=== PATIENT | female | born 1955 | race Caucasian/White ===

== ENCOUNTER 2019-01-19 17:23 | Emergency (ER) | payer OTHER ==
--- NOTE | 2019-01-19 18:43 | EDPHYS ---
Physician Documentation [facility] Name: Crystal Perry Age: 63 yrs Sex: Female : 1955 Arrival Date: 01/19/2019 Time: 17:26 Bed 7 Private MD: ED Physician Nicholas Cano HPI: 01/19 17:27 This 63 yrs old Female presents to ER via Unassigned with complaints of Fall ma2 Injury. 17:27 Details of fall: The patient fell from a height, down approximately 2 stairs. Onset: ma2 The symptoms/episode began/occurred suddenly, 1 hour(s) ago. Associated injuries: The patient sustained right foot leg. Severity of symptoms: At their worst the symptoms were moderate, in the emergency department the symptoms are unchanged. The patient has not experienced similar symptoms in the past. declined painrx in er . Historical: - Allergies: 17:30 No Known Allergies; bp - Home Meds: 17:30 Unable to obtain [Active]; bp - PMHx: 17:30 Unable to obtain; bp - Immunization history:: Adult Immunizations. - Social history:: Smoking status: Patient/guardian denies using tobacco. - Family history:: not pertinent. - Ebola Screening: : No symptoms or risks identified at this time. - Hospitalizations: : No recent hospitalization is reported. ROS: 17:27 Constitutional: Negative for fever, chills, and weight loss, Cardiovascular: Negative ma2 for chest pain, palpitations, and edema, Respiratory: Negative for shortness of breath, cough, wheezing, and pleuritic chest pain, Abdomen/GI: Negative for abdominal pain, nausea, diarrhea, and constipation, Neuro: Negative for headache, weakness, numbness, tingling, and seizure, Psych: Negative for depression, anxiety, suicide ideation, homicidal ideation, and hallucinations. 17:27 All other systems are negative. Exam: 17:27 Constitutional: This is a well developed, well nourished patient who is awake, alert, ma2 and in no acute distress. Chest/axilla: Normal chest wall appearance and motion. Nontender with no deformity. No lesions are appreciated. Cardiovascular: Regular rate and rhythm with a normal S1 and S2. No gallops, murmurs, or rubs. Normal PMI, no JVD. No pulse deficits. Respiratory: Lungs have equal breath sounds bilaterally, clear to auscultation and percussion. No rales, rhonchi or wheezes noted. No increased work of breathing, no retractions or nasal flaring. Abdomen/GI: Soft, non-tender, with normal bowel sounds. No distension or tympany. No guarding or rebound. No evidence of tenderness throughout. Skin: Warm, dry with normal turgor. Normal color with no rashes, no lesions, and no evidence of cellulitis. Neuro: Awake and alert, GCS 15, oriented to person, place, time, and situation. Cranial nerves II-XII grossly intact. Motor strength 5/5 in all extremities. Sensory grossly intact. Cerebellar exam normal. Normal gait. 17:27 MS/ Extremity: ttp ob right ankel and lower leg, otherwise Pulses equal, no cyanosis. Neurovascular intact. Full, normal range of motion. Vital Signs: 17:30 BP 125 / 60; Pulse 64; Resp 16; Temp 97.5; Pulse Ox 100% ; Weight 83.91 kg; Height 5 bp ft. 4 in. (162.56 cm); 18:00 BP 122 / 62; Pulse 73; Resp 16; Pulse Ox 97% ; bp 17:30 Body Mass Index 31.75 (83.91 kg, 162.56 cm) bp Procedures: 18:37 Splinting: Splint applied to right leg using Orthoglass splint, post reduction film - ct2 reveals normal alignment, Examined by me, post splint application: neurovascular intact, 2+ distal pulses palpable, brisk capillary refill noted, Patient tolerated well. MDM: 17:26 Patient medically screened. [facility] 17:27 Differential diagnosis: contusion, fracture, sprain, strain. [facility] 18:37 Data reviewed: vital signs, nurses notes. Counseling: I had a detailed discussion with [facility] the patient and/or guardian regarding: the historical points, exam findings, and any diagnostic results supporting the discharge/admit diagnosis, the presence of at least one elevated blood pressure reading (>120/80) during this emergency department visit, the need for outpatient follow up. Response to treatment: the patient's symptoms have markedly improved after treatment. 01/19 17:27 Order name: Ankle Right 3 View XRAY [facility] 01/19 17:27 Order name: Foot Right 3 View XRAY [facility] 01/19 17:27 Order name: Tib Fib Right XRAY ma2 01/19 18:44 Order name: Splint - Posterior Leg: stirrup and posterior please; Complete Time: 19:58 ma2 01/19 18:44 Order name: Crutches; Complete Time: 19:58 ma2 Administered Medications: 18:37 Drug: [place] 10 mg-325 mg 1 tabs Route: PO; bp 18:43 Follow up: Response: No adverse reaction bp 18:55 Drug: Ketorolac 60 mg Route: IM; Site: right gluteus; bp 19:20 Follow up: Response: No adverse reaction; Patient states "it still hurts but I'm just lp1 ready to go home" Disposition: 01/19/19 18:42 Discharged to Home. Impression: Nondisplaced transverse fracture of shaft of right tibia. - Condition is Stable. - Discharge Instructions: Tibial Fracture, Adult. - Prescriptions for Tylenol- Codeine #3 300-30 mg Oral Tablet - take 2 tablet by ORAL route every 6 hours As needed; 30 tablet. - Medication Reconciliation Form, Thank You Letter, Antibiotic Education, Prescription Opioid Use form. - Follow up: Private Physician; When: Tomorrow; Reason: Continuance of care. Follow up: Jaspreet Up MD; When: Tomorrow; Reason: If symptoms return, Continuance of care. - Notes: please do not put weight on your right leg! Signatures: Dispatcher [employer] EDMS Jen Hastings RN RN lp1 Kev Donald RN RN bp Nicholas Cano MD MD ma2 Corrections: (The following items were deleted from the chart) 20:00 18:42 01/19/2019 18:42 Discharged to Home. Impression: Nondisplaced transverse fracture lp1 of shaft of right tibia. Condition is Stable. Forms are Medication Reconciliation Form, Thank You Letter, Antibiotic Education, Prescription Opioid Use. Follow up: Private Physician; When: Tomorrow; Reason: Continuance of care. Follow up: Dr. Jaspreet Up; When: Tomorrow; Reason: If symptoms return, Continuance of care. ma2
--- NOTE | 2019-01-19 18:43 | ER ---
Nurse's Notes [facility] Name: Crystal Perry Age: 63 yrs Sex: Female : 1955 Arrival Date: 01/19/2019 Time: 17:26 Bed 7 Private MD: Diagnosis: Nondisplaced transverse fracture of shaft of right tibia Presentation: 01/19 17:27 Presenting complaint: Patient states: FALL FROM ATTIC, FLAT FOOTED LANDING. Transition bp of care: patient was not received from another setting of care. Onset of symptoms was January 19, 2019 at 17:00. Risk Assessment: Do you want to hurt yourself or someone else? Patient reports no desire to harm self or others. Initial Sepsis Screen: Does the patient meet any 2 criteria? No. Patient's initial sepsis screen is negative. Does the patient have a suspected source of infection? No. Patient's initial sepsis screen is negative. Care prior to arrival: Placed on backboard. 17:27 Method Of Arrival: EMS: [facility] bp 17:27 Acuity: JACQUE 3 bp Triage Assessment: 17:30 General: Appears in no apparent distress. comfortable, Behavior is cooperative, bp appropriate for age, anxious. Pain: Complains of pain in right ankle. EENT: No deficits noted. Neuro: No deficits noted. Cardiovascular: No deficits noted. Respiratory: No deficits noted. GI: No signs and/or symptoms were reported involving the gastrointestinal system. : No signs and/or symptoms were reported regarding the genitourinary system. Derm: No deficits noted. Musculoskeletal: No deficits noted. Historical: - Allergies: 17:30 No Known Allergies; bp - Home Meds: 17:30 Unable to obtain [Active]; bp - PMHx: 17:30 Unable to obtain; bp - Immunization history:: Adult Immunizations. - Social history:: Smoking status: Patient/guardian denies using tobacco. - Family history:: not pertinent. - Ebola Screening: : No symptoms or risks identified at this time. - Hospitalizations: : No recent hospitalization is reported. Screenin:32 Abuse screen: Denies threats or abuse. Denies injuries from another. Nutritional bp screening: No deficits noted. Tuberculosis screening: No symptoms or risk factors identified. Fall Risk None identified. Assessment: 17:32 General: SEE TRIAGE NOTE. bp 18:00 Reassessment: XRAY COMPLETED, RESULTS PENDING. bp 19:15 Reassessment: Patient states continued pain to right leg; States "I'm just ready for my lp1 splint and to go home". General: Appears uncomfortable, Behavior is appropriate for age. 19:22 Reassessment: pt c/o numbness and pain in ankle and toes, CR is the same naomi, ch temperature is the same, skin is pale equally bilaterally. pt does have some swelling. after splinting, pt NV status remains the same, foot elevated on pillows, awaiting splint to harden and crutches for discharge. Vital Signs: 17:30 BP 125 / 60; Pulse 64; Resp 16; Temp 97.5; Pulse Ox 100% ; Weight 83.91 kg; Height 5 bp ft. 4 in. (162.56 cm); 18:00 BP 122 / 62; Pulse 73; Resp 16; Pulse Ox 97% ; bp 17:30 Body Mass Index 31.75 (83.91 kg, 162.56 cm) bp ED Course: 17:26 Patient arrived in ED. bp 17:26 Nicholas Cano MD is Attending Physician. ma2 17:29 Triage completed. bp 17:30 Arm band placed on. bp 17:32 Patient has correct armband on for positive identification. Bed in low position. Call bp light in reach. Side rails up X2. 18:09 Kev Donald, RN is Primary Nurse. bp 18:25 Ankle Right 3 View XRAY In Process Unspecified. EDMS 18:25 Foot Right 3 View XRAY In Process Unspecified. EDMS 18:26 Tib Fib Right XRAY In Process Unspecified. EDMS 18:38 Jaspreet Up MD is Referral Physician. ma2 19:22 Orthoglass splint: Posterior short lleg splint applied on right leg. stirrup splint ch applied on right leg. 19:22 No provider procedures requiring assistance completed. ch 19:35 Patient did not have IV access during this emergency room visit. Crutch training done. lp1 Administered Medications: 18:37 Drug: [place] 10 mg-325 mg 1 tabs Route: PO; bp 18:43 Follow up: Response: No adverse reaction bp 18:55 Drug: Ketorolac 60 mg Route: IM; Site: right gluteus; bp 19:20 Follow up: Response: No adverse reaction; Patient states "it still hurts but I'm just lp1 ready to go home" Intake: Outcome: 18:42 Discharge ordered by . ma2 19:35 Discharged to home via wheelchair, with crutches, with family. lp1 19:35 Condition: stable 19:35 Discharge instructions given to patient, Instructed on discharge instructions, follow up and referral plans. medication usage, Demonstrated understanding of instructions, follow-up care, medications, Prescriptions given X 1. 19:40 Patient left the ED. lp1 Signatures: Dispatcher [employer] EDMS Delaney Holder RN RN Jen Hastings RN RN lp1 Kev Donald RN RN Nicholas Palomares MD MD ma2 Corrections: (The following items were deleted from the chart) 20:01 20:00 Patient left the ED. lp1 lp1
[2019-01-19] MEDS ORDERED: HYDROCODONE/APAP 10/325 TAB ONE (18:50)
--- NOTE | 2019-01-19 18:52 | RAD REPORT ---
EXAM DESCRIPTION: RAD - Tib Fib Right - 01/19/2019 6:25 pm CLINICAL HISTORY: Fall, leg pain COMPARISON: None. FINDINGS: Ankle fracture changes are detailed on separate report. Subtle cortical irregularity seen along the medial margin of the right tibial plateau. No correlate on the lateral view. Joint effusion is not suspected. Fracture at this site is unlikely but can be further evaluated the patient has loc alizing symptoms at the knee. Degenerative spurring changes are present. No air or foreign body in th e soft tissues. IMPRESSION: Ankle fracture changes are separately detailed. Subtle cortical irregularity medial margin of the right tibial plateau not likely fracture. Follow-up imaging could be performed if the patient has symptoms localizing to the knee joint.
--- NOTE | 2019-01-19 18:54 | RAD REPORT ---
EXAM DESCRIPTION: RAD - Ankle Right 3 View - 01/19/2019 6:25 pm CLINICAL HISTORY: Fall, leg pain COMPARISON: None. FINDINGS: Comminuted fracture of the distal tibia is present. There is a large triangular-shaped fra cture involving the anterior aspect of the distal fibula. Multiple fractures traverse the tibial plaf ond. There is a moderate size triangular-shaped fracture at the posterior malleolus. No fibula fractu re confirmed. Large plantar spur is present. No fracture of the talus or calcaneus seen. Midfoot dege nerative changes are present. Soft tissue swelling surrounds the ankle joint. No foreign body. IMPRESSION: Comminuted fracture involves the distal tibia with multiple fracture planes at the artic ular surface.
--- NOTE | 2019-01-19 18:54 | RAD REPORT ---
EXAM DESCRIPTION: RAD - Foot Right 3 View - 01/19/2019 6:25 pm CLINICAL HISTORY: Fall, right foot pain COMPARISON: None. FINDINGS: No fracture, dislocation or periosteal reaction. No acute bone or joint finding involves t he foot. Comminuted distal tibia fracture is separately detailed. Moderately large plantar spur is pr esent. Moderate midfoot degenerative changes are present. No air or foreign body in the soft tissues. IMPRESSION: Right foot degenerative change as detailed. No acute finding. Comminuted distal tibia fracture is separately detailed.
[2019-01-19] MEDS ORDERED: KETOROLAC 30 MG/ML INJ ONE (19:07)
== END 2019-01-19 20:00 | disposition home or self-care (01) ==
LOC: ER 17:23
PROC: 2W3LX1Z Immobilization of Right Lower Extremity using Splint (ICD-10-PCS; principal; 2019-01-19)
DX: S82.224A Nondisplaced transverse fracture of shaft of right tibia, initial encounter for closed fracture (principal); W10.9XXA Fall (on) (from) unspecified stairs and steps, initial encounter
CPT/HCPCS: 96372; 99284